=== PATIENT | female | born 1990 | race Caucasian/White ===

== ENCOUNTER 2017-06-06 20:51 | Emergency (ER) | payer OTHER ==
[2017-06-06] MEDS ORDERED: diphenhydrAMINE 25 MG CAP PO ONE (21:23)
[2017-06-06] MEDS ORDERED: FAMOTIDINE 20 MG TAB PO ONE (21:23)
[2017-06-06] MEDS ORDERED: predniSONE 20 MG TAB PO ONE (21:24)
--- NOTE | 2017-06-06 21:54 | EDPHY ---
H & P Stated Complaint: Allergic Rxn to buckweed- Used Epi-pen 15 mins ago. Time Seen by Provider: 06/06/17 21:11 HPI/ROS: Chief Complaint: Allergic reaction HPI: 26-year-old woman with an allergy to [place] wheat started developing sensation of throat closing, itching about 10 minutes after eating a gluten free pizza crust. She checked and discovered that there was block week in the crest. She administered her own epinephrine pen. Now she is feeling better. Does have a history of reactions to [place] twice in the past. Has never needed to use her epinephrine in the past. Currently denies shortness of breath. No itching. No nausea or vomiting. No sensation of throat closing at this time. ROS: 10 point Review of Systems is negative except as noted in the HPI. PMH: Denies Social History: No smoking, occasional alcohol, no recreational drug use Family History: non-contributory Physical Exam: Gen: Awake, Alert, No Distress HEENT: Nose: no rhinorrhea Eyes: PERRLA, EOMI Mouth: Moist mucosa Neck: Supple, no JVD Chest: nontender, lungs clear to auscultation Heart: S1, S2 normal, no murmur Abd: Soft, non-tender, no guarding Back: no CVA tenderness, no midline tenderness Ext: no edema, non-tender Skin: no rash Neuro: CN II-XII intact, Sensation grossly intact, Strength 5/5 in bilateral upper and lower extremities - Personal History LMP (Females 10-55): Now Current Tetanus/Diphtheria Vaccine: Unsure Current Tetanus Diphtheria and Acellular Pertussis (TDAP): Unsure - Medical/Surgical History Hx Asthma: No Hx Chronic Respiratory Disease: No Hx Diabetes: No Hx Cardiac Disease: No Hx Renal Disease: No Hx Cirrhosis: No Hx Alcoholism: No Hx HIV/AIDS: No Hx Splenectomy or Spleen Trauma: No Other PMH: 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 She is well-appearing now. Will give her oral Benadryl, prednisone and Pepcid and continue to observe. 2144 patient is complaining of a itchy rash. No difficulty breathing. Will repeat 0.3 mL of subcutaneous epinephrine now. 2314 patient is improved. Rash is improved. No current complaints at this time. Will discharge continuing Benadryl and prednisone. I have given prescription for an EpiPen. She will follow up as an outpatient return for worsening. - Data Points Medications Given: Discontinued Medications Diphenhydramine HCl (Benadryl) 50 mg PO EDNOW ONE Stop: 06/06/17 21:24 Last Admin: 06/06/17 21:32 Dose: 50 mg Epinephrine HCl (Epinephrine) 0.3 mg IM EDNOW ONE Stop: 06/06/17 21:56 Last Admin: 06/06/17 21:58 Dose: 0.3 mg Famotidine (Pepcid) 20 mg PO EDNOW ONE Stop: 06/06/17 21:24 Last Admin: 06/06/17 21:32 Dose: 20 mg Prednisone (Prednisone) 60 mg PO EDNOW ONE Stop: 06/06/17 21:25 Last Admin: 06/06/17 21:32 Dose: 60 mg Departure - Departure Disposition: Home, Routine, Self-Care Clinical Impression: Allergic reaction Condition: Good Instructions: Food Allergy (ED), Allergies (ED) Additional Instructions: Take prednisone daily for the next 3 days. Take Benadryl 50 mg every 4-6 hours for the next 24 hours. May use your EpiPen as needed. Return to the emergency department for increasing shortness of breath, worsening rash, difficulty breathing, or any other concerns. Referrals: Renetta Walker MD [Primary Care Provider] - As per Instructions Prescriptions: EPINEPHRINE [EPIPEN] 0.3 mg IM ONCE #2 syr predniSONE 60 mg PO DAILY #9 tab
[2017-06-06 23:49] VITALS: BP 108/59; PULSE 82; RESP 16; TEMP 98.4; O2SAT 97
== END 2017-06-06 23:50 | disposition home or self-care (01) ==
DX: T78.1XXA Other adverse food reactions, not elsewhere classified, initial encounter (principal)
CPT/HCPCS: J0171